=== PATIENT | female | born 1995 | race Caucasian/White ===

== ENCOUNTER 2021-11-18 14:21 | Emergency (ER) | payer MEDICAID, SELFPAY ==
[2021-11-18 15:06] VITALS: BP 134/84; PULSE 78; RESP 18; TEMP 36.8; O2SAT 99; BMI 33.2
--- NOTE | 2021-11-18 15:20 | CTR_ITS ---
PROCEDURE INFORMATION: Exam: CT Head Without Contrast Exam date and time: 11/18/2021 3:59 PM Age: 25 years old Clinical indication: Injury or trauma; Fall; Blunt trauma (contusions or hematomas) TECHNIQUE: Imaging protocol: Computed tomography of the head without contrast. Axial, coronal and sagittal reformatted images were created and reviewed. Radiation optimization: All CT scans at this facility use at least one of these dose optimization techniques: automated exposure control; mA and/or kV adjustment per patient size (includes targeted exams where dose is matched to clinical indication); or iterative reconstruction. COMPARISON: No relevant prior studies available. RADIATION DOSE METRICS: Total DLP (mGy-cm): 1087.25 FINDINGS: Brain: No CT evidence of acute intracranial hemorrhage or acute territorial infarction. No significant mass effect or midline shift. Basal cisterns patent. Cerebral ventricles: Normal in size and configuration. Paranasal sinuses: Unremarkable. No fluid levels. Mastoid air cells: Grossly unremarkable. Bones/joints: No acute osseous abnormality. Soft tissues: Grossly unremarkable. CT/CT head wo con* [id number] IMPRESSION: No CT evidence of acute intracranial pathology.
--- NOTE | 2021-11-18 15:20 | CTR_ITS ---
PROCEDURE INFORMATION: Exam: CT Cervical Spine Without Contrast Exam date and time: 11/18/2021 3:59 PM Age: 25 years old Clinical indication: Injury or trauma; Fall; Blunt trauma TECHNIQUE: Imaging protocol: Computed tomography of the cervical spine without contrast. Axial, coronal and sagittal reformatted images were created and reviewed. Radiation optimization: All CT scans at this facility use at least one of these dose optimization techniques: automated exposure control; mA and/or kV adjustment per patient size (includes targeted exams where dose is matched to clinical indication); or iterative reconstruction. COMPARISON: No relevant prior studies available. RADIATION DOSE METRICS: Total DLP (mGy-cm): 227.2 FINDINGS: Bones/joints: Normal cervical lordosis. No CT evidence of acute fracture, dislocation or subluxation. Alignment anatomic. Vertebral body heights maintained. Lungs: Grossly unremarkable. Soft tissues: Grossly unremarkable. CT/CT cervical spin wo con* [id number] IMPRESSION: No CT evidence of acute cervical spine traumatic injury.
--- NOTE | 2021-11-18 15:20 | W.ED.FALL ---
Documented by User: Monique Enocleticia 11/18/21 20:37 HPI - Fall General: Chief Complaint: Fall Stated Complaint: Pain when turning head Time Seen by Provider: 11/18/21 17:27 History of Present Illness: 25-year-old female patient presents to the emergency department complaining of ongoing headache and dizziness. Patient states she fell and hit her head 2-1/2 days ago. Patient states her headache has just been residual and wanted to have a CT to make sure everything was okay. Patient denies any nausea vomiting. Patient denies any fever pitting. Patient was observed to have a steady gait in room. Patient denies any other injury or trauma Associated symptoms-after fall: Reports headache(s); Denies abdominal pain, chest pain, confusion, difficulty walking, hematuria, lightheadedness, neck pain or vertigo Review of Systems Const: Denies: fever(s), chills, body aches, change in appetite, change in weight, fatigue, malaise or diaphoresis Eyes: Denies: change in vision, blurry vision, blind spots, photophobia, eye discomfort, eye discharge, eye redness, floaters or seeing flashes ENMT: Denies: throat pain, uvular edema, enlarged tonsils, odynophagia, hoarseness, mouth pain, swelling of lips/tongue, oral sores, bleeding gums, dental pain, dry mouth, ear or mastoid pain, ear discharge, change in hearing, tinnitus, disequilibrium, nasal discharge, nasal congestion, post nasal drip or sinus pain Card: Denies: chest pain, palpitations, irregular heart rhythm, edema, swelling of feet/ankles, lightheadedness, syncope, pre-syncope, dyspnea on exertion, orthopnea, leg pain with exertion or acrocyanosis Resp: Denies: dyspnea, productive cough, non-productive cough, wheezing, stridor, pain on inspiration, change in phlegm color, hemoptysis or chest congestion GI: Denies: abdominal pain, nausea, vomiting, hematemesis, dysphagia, diarrhea, constipation, GI cramping, change in bowel habits or rectal pain : Denies: flank pain, difficulty voiding, dysuria, urinary frequency, urinary urgency, urinary hesitancy or hematuria Musc: Denies: neck pain, back pain, extremity pain, extremity swelling, joint pain, joint swelling, joint redness, joint warmth or deformity Skin/Breast: Denies: rash, pruritus, erythema, sores, new lesions, changes in skin color or dry skin Neuro: Reports: headache(s) and dizziness; Denies: numbness in extremities, weakness in extremities, sensory changes, lack of coordination, difficulty walking, frequent falls, vertigo, confusion, behavioral changes, Slurred speech present, difficulty communicating thoughts or seizure-like activity Psych: Denies: anxiety, depression, suicidal ideation or homicidal ideation Endo: Denies: polyuria, polydipsia, tired all the time, cold intolerance, excessive sweating, flushing, hot flashes or heat intolerance Nehemias/Lymph: Denies: easy bruising, easy bleeding, petechiae, purpura, enlarged lymph nodes or tender lymph nodes All/Imm: Denies: urticaria, throat swelling, tongue swelling, facial swelling, acute wheezing or itchy eyes Physical Exam Const: COMMON NORMALS: no acute distress, average body habitus, patient oriented x3, no limitations, healthy appearing, alert and well nourished HENMT: COMMON NORMALS: normocephalic, atraumatic, hearing grossly normal bilaterally, external ears normal, EAC's normal and TM's normal bilaterally HEAD & SCALP: normocephalic and atraumatic EXTERNAL EAR: Yes external ears normal EXTERNAL AUDITORY CANAL: EAC's normal TYMPANIC MEMBRANE: TM's normal bilaterally THROAT: no uvular edema Eye: COMMON NORMALS: Equal, round and reactive pupils present, EOMs intact bilaterally and conjunctivae normal CONJUNCTIVA: Yes conjunctivae normal PUPIL: Yes Equal, round and reactive pupils present Neck/C-Spine: COMMON NORMALS: full ROM, no lymphadenopathy, supple and no meningeal signs Chest: COMMONS NORMALS: normal inspection of the chest and normal palpation of entire chest wall Resp: COMMON NORMALS: normal respiratory effort, No retractions and No use of accessory muscles Cardio: COMMON NORMALS: regular rate and regular rhythm RATE: regular rate RHYTHM: regular rhythm : COMMON NORMALS: Yes no CVA tenderness BLADDER/KIDNEY EXAM: Yes no CVA tenderness Back/Pelvis: COMMON NORMALS: no CVA tenderness, thoracic and lumbar spine normal to inspection and no thoracic nor lumbar tenderness Neuro: COMMON NORMALS: patient oriented x3, CN's II-XII intact bilaterally, moves all extremities, no focal motor deficits, no sensory deficits noted and gait normal SENSORIUM/ORIENTATION: Yes alert MENINGEAL SIGNS: Yes no meningeal signs Course Vital Signs: Vital signs: Vital Signs Temperature 98.2 F 11/18/21 17:33 Pulse Rate 75 11/18/21 17:33 Respiratory Rate 18 11/18/21 17:33 Blood Pressure 127/79 11/18/21 17:33 Pulse Oximetry 99 11/18/21 17:33 Oxygen Delivery Me thod 11/18/21 15:06 MDM - Fall Medical Decision Making Patient is well-appearing nontoxic and in no acute distress. 25-year-old female patient presents to the emergency department complaining of ongoing headache and dizziness. Patient states she fell and hit her head 2-1/2 days ago. Patient states her headache has just been residual and wanted to have a CT to make sure everything was okay. Patient denies any nausea vomiting. Patient denies any fever pitting. Patient was observed to have a steady gait in room. Patient denies any other injury or trauma Patient does not have any focal neurodeficits noted. Patient's vital signs are stable. I did order CT head and cervical spine both were negative for any acute findings. I did discuss with patient concussive head precautions as well as home care and return precautions. At this time patient is medically cleared and appropriate for discharge Lab Data Radiology Impressions Cervical Spine CT 11/18/21 15:20 IMPRESSION: No CT evidence of acute cervical spine traumatic injury. Head CT 11/18/21 15:20 IMPRESSION: No CT evidence of acute intracranial pathology. Discharge Plan Discharge Patient Disposition: Home Clinical Impression: CHI (closed head injury) Condition: Stable Prescriptions: New methocarbamol 750 mg tablet 750 mg PO Q8H Qty: 30 0RF diclofenac sodium 75 mg tablet,delayed release (DR/EC) 75 mg PO BID Qty: 30 0RF Discharge Orders: Discharge ED (Routine); Ordered 11/18/21 Ordered By: Masoud Pyle Referrals: Alexandria Vidal FNP-C [Primary Care Provider] - Patient Instructions: Head Injury (ED) Coding Level of Care Code ED Hatchery Attendant for Chg Fwd Exam Comprehensive Documented by User: Aldo Curry MD 11/25/21 20:51 HPI - Fall General: Chief Complaint: Fall Stated Complaint: Pain when turning head Time Seen by Provider: 11/18/21 17:27 Course Vital Signs: Vital signs: Vital Signs Temperature 98.2 F 11/18/21 17:33 Pulse Rate 75 11/18/21 17:33 Respiratory Rate 18 11/18/21 17:33 Blood Pressure 127/79 11/18/21 17:33 Pulse Oximetry 99 11/18/21 17:33 Oxygen Delivery Me thod 11/18/21 15:06 MDM - Fall Medical Decision Making Patient is well-appearing nontoxic and in no acute distress. 25-year-old female patient presents to the emergency department complaining of ongoing headache and dizziness. Patient states she fell and hit her head 2-1/2 days ago. Patient states her headache has just been residual and wanted to have a CT to make sure everything was okay. Patient denies any nausea vomiting. Patient denies any fever pitting. Patient was observed to have a steady gait in room. Patient denies any other injury or trauma Patient does not have any focal neurodeficits noted. Patient's vital signs are stable. I did order CT head and cervical spine both were negative for any acute findings. I did discuss with patient concussive head precautions as well as home care and return precautions. At this time patient is medically cleared and appropriate for discharge I discussed this case with Monique King. I have reviewed this documentation. Aldo Curry MD Emergency Medicine Lab Data Radiology Impressions Cervical Spine CT 11/18/21 15:20 IMPRESSION: No CT evidence of acute cervical spine traumatic injury. Head CT 11/18/21 15:20 IMPRESSION: No CT evidence of acute intracranial pathology. Discharge Plan Discharge Patient Disposition: Home Clinical Impression: CHI (closed head injury) Condition: Stable Prescriptions: New methocarbamol 750 mg tablet 750 mg PO Q8H Qty: 30 0RF diclofenac sodium 75 mg tablet,delayed release (DR/EC) 75 mg PO BID Qty: 30 0RF Discharge Orders: Discharge ED (Routine); Ordered 11/18/21 Ordered By: Masoud Pyle Referrals: Alexandria Vidal, [employer] [Primary Care Provider] - Patient Instructions: Head Injury (ED) Coding Level of Care Code ED Hatchery Attendant for Chg Fwd Exam Comprehensive
--- NOTE | 2021-11-18 17:31 | ED_ITS ---
HPI - Fall General: Chief Complaint: Fall Stated Complaint: Pain when turning head Time Seen by Provider: 11/18/21 17:27 History of Present Illness: 25-year-old female presenting today with headache. Patient notes that 2 days ago she tripped and fell down the stairs. Striking her head on the ground. Notes some nausea after this as well as headache. Has had neck pain on the left side which triggers a headache whenever she moves since then. She denies numbness tingling or weakness. She denies nausea or vomiting today. She denies fevers or chills. She is certain fall was mechanical in nature Review of Systems General: Reports: 10 or more systems reviewed and unremarkable except in HPI and below Physical Exam Const: COMMON NORMALS: no acute distress, patient oriented x3 and alert GENERAL APPEARANCE: cooperative ORIENTATION/CONSCIOUSNESS: Yes awake, Yes oriented to person, Yes oriented to place and Yes oriented to time HENMT: COMMON NORMALS: normocephalic, atraumatic, external ears normal, Normal external nose present and moist oral mucous membranes HEAD & SCALP: normal to inspection, normocephalic and atraumatic NOSE: Normal external nose present GENERAL EAR: hearing grossly impaired EXTERNAL EAR: Yes external ears normal Eye: COMMON NORMALS: Equal, round and reactive pupils present, EOMs intact bilaterally, conjunctivae normal and no scleral icterus GENERAL EYE: appearance normal, both eyes and all related structures EYELID: eyelids normal CONJUNCTIVA: Yes conjunctivae normal SCLERA: sclerae normal PUPIL: Yes Equal, round and reactive pupils present Neck/C-Spine: COMMON NORMALS: full ROM, supple and no JVD GENERAL: Yes normal visual inspection Lymph: LYMPHATIC: no lymphadenopathy noted and no lymphedema noted Chest: COMMONS NORMALS: normal inspection of the chest Resp: COMMON NORMALS: normal respiratory effort, No retractions and No use of accessory muscles Cardio: COMMON NORMALS: no JVD, regular rate and regular rhythm RATE: regular rate RHYTHM: regular rhythm GI: COMMON NORMALS: Normal to inspection, nondistended, normoactive bowel sounds present : COMMON NORMALS: Yes no CVA tenderness BLADDER/KIDNEY EXAM: Yes no CVA tenderness Back/Pelvis: COMMON NORMALS: no CVA tenderness and thoracic and lumbar spine normal to inspection Extremity: COMMON NORMALS: normal to inspection, full ROM and capillary refill normal GENERAL: Yes normal exam except as noted Neuro: COMMON NORMALS: patient oriented x3, CN's II-XII intact bilaterally, moves all extremities, no focal motor deficits, no sensory deficits noted and gait normal SENSORIUM/ORIENTATION: Yes alert, Yes oriented to person, Yes oriented to place and Yes oriented to time Psych: COMMON NORMALS: mental status grossly normal, Normal thought process present, cooperative and normal affect THOUGHT PROCESS: Normal thought process present Skin: COMMON NORMALS: no rashes or lesions noted and no wounds GENERAL SKIN EXAM: no rashes or lesions noted Course Vital Signs: Vital signs: Vital Signs Temperature 98.2 F 11/18/21 15:06 Pulse Rate 78 11/18/21 15:06 Respiratory Rate 18 11/18/21 15:06 Blood Pressure 134/84 11/18/21 15:06 Pulse Oximetry 99 11/18/21 15:06 Oxygen Delivery Me thod 11/18/21 15:06 MDM - Fall Medical Decision Making 25-year-old female presenting today with headache and neck pain. CT head and C- spine without acute fracture or dislocation. Will place patient on diclofenac and methocarbamol for the same. Patient was given strict return precautions and recommended routine outpatient follow-up. Lab Data Radiology Impressions Cervical Spine CT 11/18/21 15:20 IMPRESSION: No CT evidence of acute cervical spine traumatic injury. Head CT 11/18/21 15:20 IMPRESSION: No CT evidence of acute intracranial pathology. Discharge Plan Discharge Patient Disposition: Home Clinical Impression: CHI (closed head injury) Condition: Stable Prescriptions: New methocarbamol 750 mg tablet 750 mg PO Q8H Qty: 30 0RF diclofenac sodium 75 mg tablet,delayed release (DR/EC) 75 mg PO BID Qty: 30 0RF Discharge Orders: Discharge ED (Routine); Ordered 11/18/21 Ordered By: Masoud Pyle Referrals: Alexandria Vidal, ANIMAL NURSE-C [Primary Care Provider] - Patient Instructions: Head Injury (ED) Coding Level of Care Code ED [employer] Consultant for [employer]
[2021-11-18 17:33] VITALS: BP 127/79; PULSE 75; RESP 18; TEMP 36.8; O2SAT 99
== END 2021-11-18 17:36 | disposition home or self-care (01) ==
PROVIDERS: Emergency Provider Emergency Medicine; PCP Nurse Practitioner
DX: S09.8XXA Other specified injuries of head, initial encounter (principal); W10.8XXA Fall (on) (from) other stairs and steps, initial encounter
CPT/HCPCS: 70450; 72125; 99284

== ENCOUNTER → 2022-08-14 14:33 | Outpatient (BNVA) | payer OTHER, MEDICAID, SELFPAY | PROVIDERS: PCP Nurse Practitioner; Referring Provider Family Medicine; Visit Provider Orthopaedic Surgery | DX: S63.614A Unspecified sprain of right ring finger, initial encounter (principal); W19.XXXA Unspecified fall, initial encounter; Y99.0 Civilian activity done for income or pay | CPT/HCPCS: 73140 ==